=== PATIENT | female | born 1940 | race Caucasian/White ===

== ENCOUNTER 2018-08-13 13:53 | Emergency (ER) | payer MEDICARE ==
[2018-08-13 14:07] VITALS: BP 111/65
[2018-08-13] MEDS ORDERED: DOXYcycline CAP(*) 100 MG PO ONE (15:09)
--- NOTE | 2018-08-13 15:10 | UC ---
Skin Complaint HPI - HPI Summary HPI Summary: 77 y/o female presents to the urgent care c/o tick bite on upper left thigh removed today. Pt reports she was walking in grass yesterday. Pt states it was engorged. Pt at touch is mild 1/10. Pt denies OLIVARES, fever, dizziness, joint pain, SOB, chest pain, abdominal pain, N/V/D. - History of Current Complaint Chief Complaint: UCSkin Time Seen by Provider: 08/13/18 14:54 Stated Complaint: TICK BITE Hx Obtained From: Patient ?: No Onset/Duration: Gradual Onset, Lasting Days - 1 day, Resolved - tick removal Skin Exposure Onset/Duration: Days Ago - 1 day Timing: Constant Onset Severity: Mild Current Severity: Mild Pain Intensity: 1 Pain Scale Used: 0-10 Numeric Location: Discrete - left upper thigh Character: Redness Aggravating Factor(s): Touch Alleviating Factor(s): Nothing Associated Signs & Symptoms: Positive: Rash - tick bite on legt upper thigh. Negative: Fever, Chills, Chest Pain, Tenderness Related History: Possible Reaction to: Insect - Allergy/Home Medications Allergies/Adverse Reactions: Allergies Allergy/AdvReac Type Severity Reaction Status Date / Time No Known Allergies Allergy Verified 08/13/18 14:07 Home Medications: Home Medications Apixaban [Eliquis] 5 mg PO DAILY WITH MEAL 08/13/18 [History Confirmed 08/13/18] Atenolol TAB* [Tenormin TAB* 25 MG] 25 mg PO DAILY 08/13/18 [History Confirmed 08/13/18] dilTIAZem HCl [Diltiazem HCl] 90 mg PO DAILY WITH MEAL 08/13/18 [History Confirmed 08/13/18] PMH/Surg Hx/FS Hx/Imm Hx Previously Healthy: Yes Endocrine History: Hypothyroidism, Dyslipidemia Cardiovascular History: Cardiac Disease, Hypertension - Surgical History Surgical History: Yes Surgery Procedure, Year, and Place: thyroidectomy 1990 for a goiter. - Family History Known Family History: Positive: None - Pt denies FMHX - Social History Occupation: Retired Lives: With Family Alcohol Use: Rare Substance Use Type: None Smoking Status (MU): Former Smoker Review of Systems All Other Systems Reviewed And Are Negative: Yes Constitutional: Positive: Negative Skin: Positive: Rash - tick bite on left upper thigh Eyes: Positive: Negative ENT: Positive: Negative Respiratory: Positive: Negative Cardiovascular: Positive: Negative Gastrointestinal: Positive: Negative Genitourinary: Positive: Negative Motor: Positive: Negative Neurovascular: Positive: Negative Musculoskeletal: Positive: Negative Neurological: Positive: Negative Psychological: Positive: Negative Is Patient Immunocompromised?: No Physical Exam - Summary Physical Exam Summary: Vital Signs Reviewed: Yes General: well developed, well nourished female sitting in the examining table w/ o any apparent distress. Eyes: Positive: Conjunctiva Clear - PERRLA, EOMI ENT: Positive: Normal ENT inspection, Hearing grossly normal, Pharynx normal, TMs normal Neck: Positive: Supple, Nontender, No Lymphadenopathy Respiratory: Positive: Chest nontender, Lungs clear, Normal breath sounds Cardiovascular: Positive: RRR, No Murmur, Pulses Normal Abdomen Description: Positive: Nontender, No Organomegaly, Soft. Negative: CVA Tenderness (R), CVA Tenderness (L) Bowel Sounds: Positive: Present Musculoskeletal: Positive: Strength Intact, ROM Intact, No Edema Neurological Exam: Normal Psychological Exam: Normal Skin: Positive: rashes - Proximal lateral aspect of Left upper thigh with tick bite with surrounding erythema, non tender to palpation. tick no longer present , no swelling or drainage observed. Triage Information Reviewed: Yes Vital Signs: Initial Vital Signs Temp 98.3 F 08/13/18 14:03 Pulse 72 08/13/18 14:03 Resp 20 08/13/18 14:03 BP 111/65 08/13/18 14:03 Pulse Ox 99 08/13/18 14:03 Course/Dx - Course Course Of Treatment: 77 y/o female presents to the urgent care c/o tick bite on upper left thigh removed today. Pt reports she was walking in grass yesterday. Pt states it was engorged. Pt at touch is mild 1/10. Pt denies OLIVARES, fever, dizziness, joint pain, SOB, chest pain, abdominal pain, N/V/D. Hx obatined. pt w/ tick bite on legt upper Thigh on examination. tick bite cleaned w/ alcohol swabs.. Antibiotic prophylaxis with Doxycycline given to the patient to prevent lyme Disease.. Pt tolerated well medication. Pt advised to observe the area for the development or Erythema Migrans for up to 30 days following exposure. Advised if he develops fever or erythema Migrans to return to the clinic or PCP for further treatment . D/c instructions explained. Pt understood and agreed with plan of care. - Differential Diagnoses - Skin Complaint Differential Diagnoses: Abscess, Cellulitis, Local Allergic Reaction, Tick Born Illness, Other - bee sting, insect bite - Diagnoses Provider Diagnosis: Tick bite of left thigh Discharge - Sign-Out/Discharge Documenting (check all that apply): Patient Departure - D/C home All imaging exams completed and their final reports reviewed: No Studies - Discharge Plan Condition: Stable Disposition: HOME Prescriptions: Bacitracin OINTMENT* 1 applic TOPICAL BID #1 tube Patient Education Materials: Tick Bite (ED) Referrals: Poly Walter MD [Primary Care Provider] - 2 Weeks Ely HINOJOSA,Heri Shanks [Medical Doctor] - If Needed Additional Instructions: 1- Please observe the area for the development or Erythema Migrans for upto 30 days following exposure. Components of the tick saliva can cause transient erythema that should not be confused with Erythema Migrans. If you develop the bull's eye rash, fever, joint pains please return to the urgent care or f/u with your PCP for further management. Please apply Bacitracin topical ointment as directed to avoid infection. 2-Antibiotic prophylaxis with Doxycycline was given to you today to prevent lyme Disease. Lyme serology can be drawn in 2 weeks with your PCP or Dr Graves to r/o Lyme disease since there is probability of negative results at early exposure. - Billing Disposition and Condition Condition: STABLE Disposition: Home
== END 2018-08-13 15:25 | disposition home or self-care (01) ==
LOC: UCEAST 13:53
DX: S70.362A Insect bite (nonvenomous), left thigh, initial encounter (principal); W57.XXXA Bitten or stung by nonvenomous insect and other nonvenomous arthropods, initial encounter; Y93.01 Activity, walking, marching and hiking; Y92.096 Garden or yard of other non-institutional residence as the place of occurrence of the external cause; I25.10 Atherosclerotic heart disease of native coronary artery without angina pectoris; I10 Essential (primary) hypertension; Z79.01 Long term (current) use of anticoagulants; Z87.891 Personal history of nicotine dependence
CPT/HCPCS: 99212; A9270-GY; G0463

== ENCOUNTER 2021-05-14 21:30 | Observation (INO) ==
[2021-05-14 22:54] LABS: ABS Basophils 0.1 10^3/ul (0-0.2); ABS Lymphocytes 0.9 10^3/ul (1.0-4.8); ABS Neutrophils 9.3 10^3/ul (1.5-7.7); Hematocrit 30 % (35-47); Hemoglobin 10.1 g/dL (12.0-16.0); Lymphocyte % 8.2 %; Mean Corpuscular HGB Conc 34 g/dL (31-36); Mean Corpuscular Hemoglobin 31 pg (27-31); Mean Corpuscular Volume 93 fL (80-97); Mean Platelet Volume 7.8 fL (7.4-10.4); Platelet Count 145 10^3/uL (150-450); Red Blood Count 3.23 10^6 /uL (3.70-4.87); Red Cell Distribution Width 13 % (10-15); White Blood Count 11.3 10^3/uL (3.5-10.8)
[2021-05-14 23:00] LABS: INR 1.79 (0.86-1.15)
[2021-05-14 23:08] LABS: Rapid COVID-19 Molecular Undetected (Undetected)
[2021-05-14 23:11] LABS: ALT 6 U/L (7-52); AST 16 U/L (13-39); Albumin 3.2 g/dL (3.2-5.2); Albumin/Globulin Ratio 1.2 (1-3); Alkaline Phosphatase 39 U/L (35-149); Anion Gap 5 mmol/L (2-11); Blood Urea Nitrogen 14 mg/dL (6-24); C Reactive Protein 68.66 mg/L (<8.01); CO2 Carbon Dioxide 25 mmol/L (22-32); Calcium 8.2 mg/dL (8.6-10.3); Chloride 103 mmol/L (101-111); Globulin 2.7 g/dL (2-4); Glucose 135 mg/dL (70-100); Potassium 4.1 mmol/L (3.5-5.0); Sodium 133 mmol/L (135-145); Total Protein 5.9 g/dL (6.4-8.9); eGFR CKD-EPI 64.6 (>60)
[2021-05-14 23:15] LABS: Troponin I 0.05 ng/mL (<0.03)
[2021-05-14 23:59] LABS: Urine Appearance Turbid; Urine Bilirubin Negative (Negative); Urine Blood 2+ (Negative); Urine Color Yellow; Urine Glucose Negative (Negative); Urine Ketones Negative (Negative); Urine Nitrite Negative (Negative); Urine Protein Negative (Negative); Urine Specific Gravity 1.012 (1.002-1.030); Urine Urobilinogen Negative (Negative)
[2021-05-15 00:05] LABS: Urine Bacteria 1+ (Absent); Urine Red Blood Cell 3+(>10/hpf) (Absent); Urine Squamous Epithelial Cell Present (Absent); Urine White Blood Cell 3+(>20/hpf) (Absent)
[2021-05-15 00:12] LABS: Influenza A Molecular Negative (Negative); Influenza B Molecular Negative (Negative)
[2021-05-15 02:25] LABS: Troponin I 0.04 ng/mL (<0.03)
[2021-05-15] MEDS ORDERED: NS 0.9% 1000 ml BAG 1,000 ML IV ONE (02:40)
[2021-05-15] MEDS ORDERED: NS 0.9% 1000 ml BAG 1,000 ML IV SCH ×2 (03:15→04:00)
[2021-05-15] MEDS ORDERED: cefTRIAXone 1 gm/50 mL NS BAG 1 GM/50 ML BAG IVPB SCH (04:00)
[2021-05-15 05:05] LABS: Troponin I 0.02 ng/mL (<0.03)
[2021-05-15 05:17] LABS: TSH Ultra Thyroid Stim Horm 0.76 mcIU/mL (0.34-5.60)
[2021-05-15 06:14] VITALS: BP 108/59
[2021-05-15 07:03] LABS: Calcium 7.8 mg/dL (8.6-10.3); Potassium 3.6 mmol/L (3.5-5.0); eGFR CKD-EPI 73.2 (>60)
[2021-05-15 07:56] LABS: Magnesium 1.8 mg/dL (1.9-2.7)
[2021-05-15] MEDS ORDERED: Magnesium Sulfate 2 gm BAG 2 GM/50 ML BAG IVPB ONE (07:57)
[2021-05-15 08:28] LABS: ABS Lymphocytes 1.4 10^3/ul (1.0-4.8); ABS Monocytes 1.2 10^3/ul (0-0.8); ABS Neutrophils 6.1 10^3/ul (1.5-7.7); Eosinophil % 0.5 %; Hematocrit 28 % (35-47); Hemoglobin 9.6 g/dL (12.0-16.0); Lymphocyte % 16.3 %; Mean Corpuscular HGB Conc 34 g/dL (31-36); Mean Corpuscular Hemoglobin 32 pg (27-31); Mean Corpuscular Volume 93 fL (80-97); Platelet Count 137 10^3/uL (150-450); Red Blood Count 3.02 10^6 /uL (3.70-4.87); Red Cell Distribution Width 13 % (10-15); White Blood Count 8.8 10^3/uL (3.5-10.8)
[2021-05-15] MEDS ORDERED: Perflutren Lipid Microsphere 3 ML VIAL ONE (08:55)
== END 2021-05-15 13:30 | disposition home or self-care (01) ==
LOC: ED 21:30 → EDHOLD 21:30 → SUATTDRO 05-15 02:41 → EDHOLD 05-15 05:17 → MED 05-15 05:47
PROVIDERS: ADMIT Internal Medicine; ATTEND Internal Medicine

== ENCOUNTER 2022-12-28 11:18 | Inpatient (IN) ==
[2022-12-28] MEDS ORDERED: Tetan/Diph/Pertus SYR(Tdap) 0.5 ML SYR(BOOSTRIX) use SYR contains LATEX IM ONE (12:06)
[2022-12-28] MEDS ORDERED: Morphine 4 MG/ML VIAL (1 ml) IV ONE (12:06)
[2022-12-28] MEDS ORDERED: Ondansetron 4 mg VIAL 2 MG/ML 2 ml VIAL IV ONE (12:31)
[2022-12-28 15:34] LABS: ABS Lymphocytes 0.5 10^3/uL (1.0-4.8); ABS Monocytes 0.8 10^3/uL (0.0-0.9); ABS Nucleated RBC 0.01 10^3/ul; Hematocrit 43.7 % (35-45); Hemoglobin 14.8 g/dL (11.5-14.3); Lymphocyte % 3.2 %; Mean Corpuscular Hemoglobin 31.9 pg (27-33); Mean Corpuscular Hgb Conc 33.9 g/dL (31-36); Mean Corpuscular Volume 94.1 fL (80-97); Mean Platelet Volume 8.7 fL (7.5-11.2); Platelet Count 128 10^3/uL (150-450); Red Blood Count 4.64 10^6/uL (3.63-4.92); White Blood Count 14.3 10^3/uL (3.8-11.8)
[2022-12-28 15:43] LABS: Activated Partial Thrombo Time 31.2 seconds (26.0-38.0); INR 1.5 (0.83-1.13)
[2022-12-28 15:49] LABS: Albumin 4.3 g/dL (3.2-5.2); Calcium 9.7 mg/dL (8.6-10.3); Magnesium 1.8 mg/dL (1.9-2.7); Potassium 4.3 mmol/L (3.5-5.0); Total Bilirubin 1.1 mg/dL (0.2-1.0)
[2022-12-28 15:55] LABS: Albumin/Globulin Ratio 1.7 (1-3); Creatinine, Serum 1.2 mg/dL (0.51-0.95); Globulin 2.5 g/dL (2-4); Total Protein 6.8 g/dL (6.4-8.9); eGFR CKD-EPI 45.8 (>60)
[2022-12-28] MEDS ORDERED: Morphine 4 MG/ML VIAL (1 ml) IV PRN (16:44)
[2022-12-28] MEDS ORDERED: Polyethylene Glycol 3350 17 GM PACKET PO PRN (17:26)
[2022-12-28] MEDS: Heparin 5000 UNITS/ML 1 mL VIAL SUBCUT SCH (21:54)
[2022-12-28] MEDS: Morphine 2 MG/ML SYRINGE IV PRN (23:03)
[2022-12-29] MEDS: Acetaminophen IV 1 GM/100ML 1,000 MG/100 ML BAG IV PRN ×3 (01:45→20:50)
[2022-12-29] MEDS: Heparin 5000 UNITS/ML 1 mL VIAL SUBCUT SCH ×3 (08:38→22:04)
[2022-12-29 11:15] LABS: ABS Eosinophils 0.2 10^3/uL (0.0-0.5); ABS Lymphocytes 1.1 10^3/uL (1.0-4.8); ABS Monocytes 0.5 10^3/uL (0.0-0.9); ABS Neutrophils 8.4 10^3/uL (1.5-7.6); ABS Nucleated RBC 0.01 10^3/ul; Eosinophil % 1.9 %; Hematocrit 39.8 % (35-45); Hemoglobin 13.7 g/dL (11.5-14.3); Lymphocyte % 10.9 %; Mean Corpuscular Hemoglobin 32.9 pg (27-33); Mean Corpuscular Hgb Conc 34.5 g/dL (31-36); Mean Corpuscular Volume 95.5 fL (80-97); Mean Platelet Volume 8.5 fL (7.5-11.2); Nucleated Red Blood Cells % 0.1 /100 WBC (0.0-0.4); Platelet Count 117 10^3/uL (150-450); Red Blood Count 4.17 10^6/uL (3.63-4.92); Red Cell Distribution Width 15.1 % (12-17); White Blood Count 10.3 10^3/uL (3.8-11.8)
[2022-12-29 11:36] LABS: Calcium 9.2 mg/dL (8.6-10.3); Creatinine, Serum 1.37 mg/dL (0.51-0.95); Potassium 4.2 mmol/L (3.5-5.0)
[2022-12-29] MEDS ORDERED: Furosemide 20 mg/2 ml IV VIAL IV SLOW PU ONE (13:27)
[2022-12-29] MEDS: Morphine 2 MG/ML SYRINGE IV PRN (16:28)
[2022-12-29] MEDS ORDERED: NS 0.9% 1000 ml BAG 1,000 ML IV SCH (22:30)
[2022-12-30] MEDS: Heparin 5000 UNITS/ML 1 mL VIAL SUBCUT SCH ×2 (05:19→19:34)
[2022-12-30] MEDS: Acetaminophen IV 1 GM/100ML 1,000 MG/100 ML BAG IV PRN (05:51)
[2022-12-30 05:59] LABS: ABS Basophils 0.1 10^3/uL (0.0-0.1); ABS Eosinophils 0.4 10^3/uL (0.0-0.5); ABS Monocytes 0.5 10^3/uL (0.0-0.9); ABS Neutrophils 6.5 10^3/uL (1.5-7.6); Eosinophil % 4.4 %; Hematocrit 38.8 % (35-45); Hemoglobin 13.3 g/dL (11.5-14.3); Lymphocyte % 11.9 %; Mean Corpuscular Hemoglobin 32.5 pg (27-33); Mean Corpuscular Hgb Conc 34.3 g/dL (31-36); Mean Corpuscular Volume 94.6 fL (80-97); Mean Platelet Volume 8.6 fL (7.5-11.2); Platelet Count 105 10^3/uL (150-450); Red Blood Count 4.09 10^6/uL (3.63-4.92); Red Cell Distribution Width 14.7 % (12-17); White Blood Count 8.4 10^3/uL (3.8-11.8)
[2022-12-30 06:11] LABS: Calcium 8.8 mg/dL (8.6-10.3); Creatinine, Serum 1.36 mg/dL (0.51-0.95); Magnesium 1.8 mg/dL (1.9-2.7); Potassium 3.9 mmol/L (3.5-5.0); eGFR CKD-EPI 39.4 (>60)
[2022-12-30] MEDS ORDERED: Magnesium Sulfate 2 gm BAG 2 GM/50 ML BAG IVPB ONE (07:23)
[2022-12-30] MEDS ORDERED: KCL 20 MEQ/100 ML IVPREMIX 20 MEQ/100 ML BAG IV ONE (07:23)
[2022-12-30] MEDS ORDERED: ceFAZolin 2 GM in NS PREMIX 2 GM/100 ML BAG IVPB ONE (14:20)
[2022-12-30] MEDS ORDERED: fentaNYL 100 mcg/2 ml 50 MCG/ML VIAL ONE (15:21)
[2022-12-30] MEDS ORDERED: Midazolam 2 mg/2 ml VIAL 1 mg/ml 2 ml VIAL (2 mg) ONE (15:21)
[2022-12-30] MEDS ORDERED: HYDROmorphone 0.5 MG/0.5 ML SYRINGE ONE ×2 (15:28→18:54)
[2022-12-30] MEDS ORDERED: Ondansetron 4 mg VIAL 2 MG/ML 2 ml VIAL ONE (15:36)
[2022-12-30] MEDS ORDERED: Dexamethasone IV 4 MG/ML VIAL 1 ml VIAL ONE (15:36)
[2022-12-30] MEDS ORDERED: Propofol 10 MG/ML 20 ML BTL ONE ×2 (15:36)
[2022-12-30] MEDS ORDERED: KETAMINE HCL 10 MG/ML 20 ml VIAL (200 MG) ONE (15:37)
[2022-12-30] MEDS ORDERED: Lidocaine 2% PF 5 ML VIAL ONE (15:48)
[2022-12-30] MEDS ORDERED: Bupivacaine 0.25% SDV 30 ML ONE (16:31)
[2022-12-30] MEDS ORDERED: Acetaminophen IV 1 GM/100ML 1,000 MG/100 ML BAG IV ONE (18:51)
[2022-12-30] MEDS ORDERED: Norepinephrine IV 1 MG/ML 4 ML VIAL ONE (19:46)
[2022-12-30] MEDS ORDERED: Naloxone 0.4 mg VIAL 0.4 mg/ml 1 ml VIAL IV PRN (19:55)
[2022-12-30] MEDS ORDERED: HYDROmorphone 1 MG/1 ML SYRINGE IV PRN (19:55)
[2022-12-30] MEDS ORDERED: Ondansetron 4 mg VIAL 2 MG/ML 2 ml VIAL IV PRN (19:55)
[2022-12-30] MEDS ORDERED: fentaNYL 100 mcg/2 ml 50 MCG/ML VIAL IV PRN (19:55)
[2022-12-30] MEDS ORDERED: Polyethylene Glycol 3350 17 GM PACKET PO PRN (20:25)
[2022-12-30] MEDS ORDERED: Morphine 2 MG/ML SYRINGE IV PRN (20:25)
[2022-12-30] MEDS ORDERED: Senna TAB 8.6 mg TAB PO PRN (20:25)
[2022-12-30] MEDS ORDERED: Magnesium Hydroxide LIQ 30 ML UDC PO PRN (20:25)
[2022-12-30 21:00] LABS: ABS Eosinophils 0.2 10^3/uL (0.0-0.5); ABS Lymphocytes 0.6 10^3/uL (1.0-4.8); ABS Monocytes 0.3 10^3/uL (0.0-0.9); ABS Neutrophils 8.4 10^3/uL (1.5-7.6); Eosinophil % 2.4 %; Hemoglobin 13.7 g/dL (11.5-14.3); Lymphocyte % 6.3 %; Mean Corpuscular Hemoglobin 32.7 pg (27-33); Mean Corpuscular Hgb Conc 34.3 g/dL (31-36); Mean Corpuscular Volume 95.2 fL (80-97); Mean Platelet Volume 8.4 fL (7.5-11.2); Platelet Count 110 10^3/uL (150-450); Red Cell Distribution Width 14.7 % (12-17); White Blood Count 9.7 10^3/uL (3.8-11.8)
[2022-12-30] MEDS ORDERED: Simvastatin 20 mg TAB (NF) PO SCH (21:00)
[2022-12-30 22:55] LABS: Hemoglobin 13.5 g/dL (11.5-14.3)
[2022-12-30] MEDS: Magnesium Hydroxide LIQ 30 ML UDC PO SCH (23:44)
[2022-12-31] MEDS: ceFAZolin 1 GM ADVAN 1 GM in NS 0.9% 50 ML 50 ML IVPB SCH ×3 (02:46→18:06)
[2022-12-31 07:00] LABS: Hematocrit 39.1 % (35-45); Hemoglobin 13.5 g/dL (11.5-14.3); Mean Platelet Volume 8.9 fL (7.5-11.2); Platelet Count 115 10^3/uL (150-450)
[2022-12-31 07:01] LABS: Albumin 3.7 g/dL (3.2-5.2); Albumin/Globulin Ratio 1.5 (1-3); Calcium 9.1 mg/dL (8.6-10.3); Creatinine, Serum 1.07 mg/dL (0.51-0.95); Globulin 2.5 g/dL (2-4); Potassium 4.3 mmol/L (3.5-5.0); Total Bilirubin 0.9 mg/dL (0.2-1.0); Total Protein 6.2 g/dL (6.4-8.9); eGFR CKD-EPI 52.5 (>60)
[2022-12-31] MEDS: Magnesium Hydroxide LIQ 30 ML UDC PO SCH ×3 (09:33→22:17)
[2022-12-31] MEDS ORDERED: Lactated Ringers 1000 ml BAG 1,000 ML IV SCH (22:00)
[2023-01-01] MEDS: Magnesium Hydroxide LIQ 30 ML UDC PO SCH ×2 (08:00→21:21)
[2023-01-01 08:39] LABS: Hematocrit 34.3 % (35-45); Hemoglobin 11.9 g/dL (11.5-14.3)
[2023-01-01] MEDS ORDERED: Lactated Ringers 1000 ml BAG 1,000 ML IV ONE (09:29)
[2023-01-01 15:18] LABS: Rapid COVID-19 Molecular Undetected (Undetected)
[2023-01-02 06:28] LABS: Hemoglobin 10.3 g/dL (11.5-14.3)
[2023-01-02] MEDS: Magnesium Hydroxide LIQ 30 ML UDC PO SCH (09:25)
[2023-01-02 09:30] LABS: Calcium 8.6 mg/dL (8.6-10.3); Creatinine, Serum 1.12 mg/dL (0.51-0.95); Potassium 4.1 mmol/L (3.5-5.0); eGFR CKD-EPI 49.7 (>60)
[2023-01-03 06:18] LABS: ABS Basophils 0.1 10^3/uL (0.0-0.1); ABS Eosinophils 0.3 10^3/uL (0.0-0.5); ABS Lymphocytes 1.8 10^3/uL (1.0-4.8); ABS Monocytes 0.8 10^3/uL (0.0-0.9); ABS Neutrophils 5.3 10^3/uL (1.5-7.6); Hemoglobin 10.2 g/dL (11.5-14.3); Lymphocyte % 21.5 %; Mean Corpuscular Hgb Conc 35.2 g/dL (31-36); Mean Corpuscular Volume 93.7 fL (80-97); Mean Platelet Volume 8.2 fL (7.5-11.2); Platelet Count 142 10^3/uL (150-450); Red Cell Distribution Width 15.1 % (12-17); White Blood Count 8.3 10^3/uL (3.8-11.8)
[2023-01-03 06:36] LABS: Calcium 8.5 mg/dL (8.6-10.3); Creatinine, Serum 1.06 mg/dL (0.51-0.95); Potassium 4.2 mmol/L (3.5-5.0); eGFR CKD-EPI 53.1 (>60)
[2023-01-03 09:42] VITALS: BP 116/72
== END 2023-01-03 13:12 | DRG 522 ==
LOC: ED 11:18 → SUATTDRO 20:57 → EDHOLD 20:57 → SSU 12-29 15:31
PROVIDERS: ADMIT Internal Medicine; ATTEND Internal Medicine